=== PATIENT | female | born 1985 | race Caucasian/White ===

== ENCOUNTER 2021-09-15 07:33 | Emergency (ER) | payer OTHER | END 2021-09-15 08:31 | disposition home or self-care (01) | LOC: BURERS 07:33 | DX: J30.9 Allergic rhinitis, unspecified (principal) | CPT/HCPCS: 99283 ==

== ENCOUNTER 2021-11-03 13:34 | Emergency (ER) | payer OTHER ==
[2021-11-03] MEDS ORDERED: Dexamethasone 4 MG TAB ONE (14:05)
== END 2021-11-03 14:11 | disposition home or self-care (01) ==
LOC: BURERS 13:34
DX: J02.9 Acute pharyngitis, unspecified (principal)
CPT/HCPCS: 99283; J8540

== ENCOUNTER 2022-04-25 13:46 | Emergency (ER) | payer OTHER ==
[2022-04-25] MEDS ORDERED: Dexamethasone 10 MG/ML VIAL ONE (14:19)
== END 2022-04-25 14:36 | disposition home or self-care (01) ==
LOC: BURERS 13:46
DX: L23.7 Allergic contact dermatitis due to plants, except food (principal); I10 Essential (primary) hypertension; Z79.899 Other long term (current) drug therapy
CPT/HCPCS: 96372; 99282; J1100

== ENCOUNTER 2022-06-02 05:49 | Emergency (ER) | payer OTHER ==
[~2022-06-02 05:49] MED LIST: Neomycin-Polymyxin-Hc 7.5 ML BOT ONE
== END 2022-06-02 06:00 | disposition home or self-care (01) ==
LOC: BURERS 05:49
DX: H10.211 Acute toxic conjunctivitis, right eye (principal); T49.5X5A Adverse effect of ophthalmological drugs and preparations, initial encounter
CPT/HCPCS: 99282

== ENCOUNTER 2022-09-20 10:17 | Emergency (ER) | payer BC, OTHER ==
[2022-09-20 10:57] LABS: #Lymphocytes 1.9 thou/uL (1.20-3.40); #Monocytes 0.3 thou/uL (0.11-0.59); #Neutrophils 5.8 thou/uL (1.40-6.50); %Basophils 0.6 % (0.0-1.0); %Eosinophils 0.5 % (0.0-10.0); %Monocytes 3.8 % (0.0-10.0); %Neutrophils 71.2 % (42.0-75.0); Hemoglobin 15.5 g/dL (12.0-16.0); Mean Corpuscular HGB CONC 32.9 g/dL (32.0-36.0); Mean Corpuscular Hemoglobin 29.1 pg (27.0-31.0); Mean Corpuscular Volume 88.5 fl (78.0-98.0); Mean Platelet Volume 10.3 fL (7.4-10.4); Platelet Count 232 10x3/uL (130-400); RBC Distribution Width 12.1 % (11.5-14.5); Red Blood Cell (RBC) Count 5.32 mill/uL (4.20-5.40); White Blood Cell (WBC) Count 8.1 10x3/uL (4.8-10.8)
[2022-09-20 11:05] LABS: Bilirubin Negative (Negative); Blood, Urine Negative (Negative); Clarity Clear (Clear); Glucose, Urine (Dipstick) Negative (Negative); Ketone, Urine Negative (Negative); Leukocyte Negative (Negative); Nitrite Negative (Negative); Protein, Urine (Dipstick) Negative (Neg-Trace); Specific Gravity, Urine 1.025 (1.005-1.030); Urobilinogen 0.2 mg/dL (Less than 2)
[2022-09-20 11:06] LABS: Pregnancy Test - Urine (BHCG) Negative (Negative)
[2022-09-20 11:07] LABS: Pregu Control Background? CLEAR/WHITE (CLR/WHITE); Pregu Control Bar Appear? YES (CONTROL BAR); Specific Gravity 1.025 (1.002-1.036)
[2022-09-20 11:13] LABS: ALT (SGPT) 17 U/L (8-55); AST (SGOT) 16 U/L (5-34); Albumin 4.3 g/dL (3.5-5.0); Alkaline Phosphatase 56 U/L (40-110); Anion Gap 13 mmol/L (10-20); BUN (Urea Nitrogen) 12 mg/dL (7.0-18.7); Bilirubin, Total 0.7 mg/dL (0.2-1.2); Calc. Creatinine Clearance 0 mL/min (70-130); Calcium 9.3 mg/dL (7.8-10.44); Carbon Dioxide 25 mmol/L (22-29); Chloride 105 mmol/L (98-107); Estimated GFR 109; Globulin 2.7 g/dL (2.4-3.5); Glucose 135 mg/dL (70-105); Lipase 25 U/L (8-78); Potassium 3.9 mmol/L (3.5-5.1); Sodium 139 mmol/L (136-145)
== END 2022-09-20 11:39 | disposition home or self-care (01) ==
LOC: BURERS 10:17
DX: K80.50 Calculus of bile duct without cholangitis or cholecystitis without obstruction (principal); J06.9 Acute upper respiratory infection, unspecified
CPT/HCPCS: 36415; 80053; 81003; 81025; 83690; 85025; 99284